=== PATIENT | female | born 1930 | race Caucasian/White ===

== ENCOUNTER 2018-03-04 13:48 | Inpatient (IN) | payer MEDICARE ==
[~2018-03-04] VITALS: Ht 152.4 cm; Wt 81.8 kg
[2018-03-04] VITALS (19 sets, daily range): BP systolic 120–258; BP diastolic 45–134
[2018-03-04 14:53] LABS: HEMATOCRIT 42.9 % (37.0-47.0); HEMOGLOBIN 13.6 gm/dL (12.0-15.0); MCH 25.2 pg (26.0-34.0); MCHC 31.7 g/dL (28.0-37.0); MCV 79.6 fL (80.0-100.0); MPV 8.8 fl. (7.2-11.1); NUCLEATED RBCS 0 /100WBC; PLATELET COUNT* 257 thou/uL (150-400); RBC 5.39 mil/uL (4.20-5.00); RDW-CV 16.6 % (10.5-14.5); WBC 8.4 thou/uL (4.0-11.0)
[2018-03-04 15:07] LABS: APTT 25.9 Seconds (25.0-31.3); INR 0.9; PROTIME 9.7 Seconds (9.20-11.50)
[2018-03-04 15:09] LABS: ANION GAP 7 mmol/L (7-16); BUN 11 mg/dL (7-18); CALCIUM 8.9 mg/dL (8.5-10.1); CHLORIDE 108 mmol/L (98-107); CO2 27 mmol/L (21-32); CREATININE 0.9 mg/dL (0.6-1.3); GLUCOSE 105 mg/dL (70-99); SODIUM 142 mmol/L (136-145)
[2018-03-04 15:14] LABS: ALBUMIN 3.2 g/dL (3.4-5.0); ALKALINE PHOSPHATASE 81 U/L (46-116); SGOT 13 U/L (15-37); SGPT 12 U/L (30-65); TOTAL BILIRUBIN 0.2 mg/dL (<0.1-1.0); TOTAL PROTEIN 6.9 g/dL (6.4-8.2); TROPONIN-I LEVEL <0.06 ng/mL (<0.06)
[2018-03-04 15:17] LABS: ABSOLUTE EOSINOPHILS 0.1 thou/uL (0.0-0.7); ABSOLUTE LYMPHOCYTES 1.3 thou/uL (0.8-5.3); ABSOLUTE MONOCYTES 0.2 thou/uL (0.0-1.2); ABSOLUTE NEUTROPHILS 6.9 thou/uL (1.6-8.1); ATYPICAL LYMPHS 1 %; PLATELET ESTIMATE ADEQUATE
--- NOTE | 2018-03-04 16:27 | EKG ---
[place] [address] ELECTROCARDIOGRAM REPORT Name: AUGUSTO SALOMON Room: [facility]#: [id number] Admission: 03/04/18 Attend Phys: Discharge: Date of : 32 Report #: [id number] THIS REPORT FOR: //name// [facility] ED Test Date: 2018-03-04 Test Time: 13:57:07 Pat Name: AUGUSTO SALOMON Department: Room: Gender: F Atmospheric Sciences Professor: Vivian MACIAS : 1930 Requested By: Cassi Gandhi Order Number: [id number] MD: Royce Licona Measurements Intervals [place] Rate: 107 P: 73 UT: 173 QRS: 18 QRSD: 88 T: 59 QT: 326 QTc: 435 Interpretive Statements Sinus tachycardia Anterior infarct, old No previous ECG available for comparison Electronically Signed On 03-04-2018 16:27:26 ELECTROENCEPHALOGRAM TECHNOLOGIST by Royce Licona [email or web address] <ELECTRONICALLY SIGNED> By: Royce Licona MD, [facility] 03/04/18 1627 1357 1357 Royce Licona MD, FACC /EPI
[2018-03-04 16:35] LABS: URINE BILIRUBIN NEGATIVE (Negative); URINE BLOOD NEGATIVE (Negative); URINE CLARITY CLEAR; URINE COLOR YELLOW; URINE GLUCOSE-RANDOM NEGATIVE (Negative); URINE KETONES NEGATIVE (Negative); URINE LEUKOCYTES-REFLEX 2+ (Negative); URINE NITRITE-REFLEX NEGATIVE (Negative); URINE PROTEIN NEGATIVE (Negative); URINE UROBILINOGEN 0.2 E.U./dl (0.2-1.0)
[2018-03-04 16:40] LABS: SQUAMOUS 0-3 Few /LPF (0-3); URINE RBC None Seen /HPF (0-2); URINE WBC-REFLEX 6-15 Few /HPF (0-5)
[2018-03-05] VITALS (43 sets, daily range): BP systolic 94–218; BP diastolic 44–141
[2018-03-05 09:41] LABS: ALBUMIN 2.8 g/dL (3.4-5.0); CALCIUM 8.4 mg/dL (8.5-10.1); CREATININE 0.9 mg/dL (0.6-1.3); POTASSIUM 3.7 mmol/L (3.5-5.1); TOTAL BILIRUBIN 0.2 mg/dL (<0.1-1.0); TOTAL PROTEIN 6.3 g/dL (6.4-8.2)
--- NOTE | 2018-03-05 10:11 | EKG ---
[place] [address] ELECTROCARDIOGRAM REPORT Name: AUGUSTO SALOMON Room: [address] ADM IN M.R.#: [id number] Admission: 03/04/18 Attend Phys: Sd Quarles Discharge: Date of : 31 Report #: [id number] THIS REPORT FOR: //name// [facility] ED Test Date: 2018-03-04 Test Time: 17:44:17 Pat Name: AUGUSTO SALOMON Department: Room: [facility] Gender: F Cushion Sewer: Leandro ROBLES : 1930 Requested By: Cassi Gandhi Order Number: [id number] MD: Bhaskar Mcfadden Measurements Intervals [place] Rate: 113 P: 110 CO: 150 QRS: 4 QRSD: 86 T: 109 QT: 310 QTc: 425 Interpretive Statements Sinus tachycardia Multiple premature complexes, vent & supraven Anterior infarct, old Compared to ECG 03/04/2018 13:57:07 pac's and pvc now noted Electronically Signed On 03-05-2018 10:11:35 PERSONAL SECRETARY by Bhaskar Mcfadden [email or web address] <ELECTRONICALLY SIGNED> By: Bhaskar Mcfadden MD, FACC 03/05/18 1011 1744 1744 Bhaskar Mcfadden MD, [facility] /EPI
--- NOTE | 2018-03-05 13:19 | 2DMMODE ---
[place] [address] 2 D/M-MODE ECHOCARDIOGRAM Name: AUGUSTO SALOMON Room: [address] IN [facility]#: [id number] Admission: 03/04/18 Attend Phys: Ross Bailey Discharge: Date of : 31 Date of Service: 03/05/18 1319 Report #: [id number] THIS REPORT FOR: //name// APPROVED REPORT Study performed: 03/05/2018 10:36:11 EXAM: Comprehensive 2D, Doppler, and color-flow Echocardiogram Patient Location: In-Patient Room #: [facility] Status: routine BSA: 1.80 HR: 77 bpm BP: 160/48 mmHg Rhythm: NSR Other Information Study Quality: Fair Indications CVA/TIA Echo Enhancing Agent Indication: Rule out Shunt Agent(s) / Amount(s) Used: Agitated Saline 10 cc 2D Dimensions IVSd: 12.93 (7-11mm) LVOT Diam: 19.92 (18-24mm) LVDd: 38.39 mm PWd: 12.44 (7-11mm) Ascending Ao: 27.83 (22-36mm) LVDs: 21.79 (25-40mm) Aortic Root: 28.49 mm Volumes Left Atrial Volume (Systole) LA ESV Index: 30.80 mL/m2 Aortic Valve AoV Peak Garrison.: 2.04 m/s AO Peak Gr.: 16.71 mmHg LVOT Max P.54 mmHg AO Mean Gr.: 8.47 mmHg LVOT Mean P.86 mmHg LVOT Max V: 1.07 m/s AO V2 VTI: 42.18 cm LVOT Mean V: 0.62 m/s PRAVEEN (VTI): 1.71 cm2 LVOT V1 VTI: 23.10 [place] [address] 2 D/M-MODE ECHOCARDIOGRAM Name: AUGUSTO SALOMON Room: [address] IN ..#: [id number] Admission: 03/04/18 Attend Phys: Ross Bailey Discharge: Date of : 31 Date of Service: 03/05/18 1319 Report #: [id number] Mitral Valve E/A Ratio: 0.77 MV Decel. Time: 277.64 ms MV E Max Garrison.: 0.84 m/s MV PHT: 80.52 ms MVA (PHT): 2.73 cm2 TDI E/Lateral E': 8.40 E/Medial E': 12.00 Medial E' Garrison.: 0.07 m/s Lateral E' Garrison.: 0.10 m/s Pulmonary Valve PV Peak Garrison.: 1.19 m/s PV Peak Gr.: 5.62 mmHg Left Ventricle The left ventricle is normal size. There is normal LV segmental wall motion. Mild concentric left ventricular hypertrophy. Left ventricular systolic function is normal. The left ventricular ejection fraction is within the normal range. LVEF is 65-70%. Grade I - abnormal relaxation pattern. Right Ventricle The right ventricle is normal size. The right ventricular systolic function is normal. Atria Left atrium is mildly dilated. Interatrial septum is intact without evidence of ASD or PFO. The right atrium size is normal. Aortic Valve Mild aortic valve sclerosis. No aortic regurgitation is present. Mild aortic stenosis. Mitral Valve The mitral valve is normal in structure. There is no mitral valve regurgitation noted. No evidence of mitral valve stenosis. Tricuspid Valve The tricuspid valve is normal in structure. Trace tricuspid regurgitation. Pulmonic Valve Pulmonic valve is not well visualized. There is no pulmonic [place] [address] 2 D/M-MODE ECHOCARDIOGRAM Name: AUGUSTO SALOMON Room: [address]#: [id number] Admission: 03/04/18 Attend Phys: Ross Bailey Discharge: Date of : 31 Date of Service: 03/05/18 1319 Report #: [id number] Great Vessels The aortic root is normal in size. IVC is normal in size and collapses >50% with inspiration. Pericardium There is no pericardial effusion. <Conclusion> Mild concentric left ventricular hypertrophy. LVEF is 65-70%. Left atrium is mildly dilated. Mild aortic stenosis. Interatrial septum is intact without evidence of ASD or PFO. <ELECTRONICALLY SIGNED> By: Bhaskar Mcfadden MD, FACC 03/05/18 1319 18 18 Bhaskar Mcfadden MD, FACC /INF
[2018-03-05 19:07] LABS: GLYCOHEMOGLOBIN (HGB A1C) 5.7 % (4.8-5.6)
[2018-03-06] VITALS (11 sets, daily range): BP systolic 154–196; BP diastolic 53–105
[2018-03-06 04:13] LABS: ABSOLUTE BASOPHILS 0.1 thou/uL (0.0-0.2); ABSOLUTE EOSINOPHILS 0.1 thou/uL (0.0-0.7); ABSOLUTE LYMPHOCYTES 1.3 thou/uL (0.8-5.3); ABSOLUTE MONOCYTES 0.7 thou/uL (0.0-1.2); ABSOLUTE NEUTROPHILS 6.2 thou/uL (1.6-8.1); BASOPHILS 0.6 %; EOSINOPHILS 1.5 %; HEMATOCRIT 35.8 % (37.0-47.0); HEMOGLOBIN 11.7 gm/dL (12.0-15.0); LYMPHOCYTES 15.5 %; MCH 25.7 pg (26.0-34.0); MCHC 32.6 g/dL (28.0-37.0); MCV 78.9 fL (80.0-100.0); MONOCYTES 8.4 %; MPV 9.1 fl. (7.2-11.1); NUCLEATED RBCS 0 /100WBC; PLATELET COUNT* 236 thou/uL (150-400); RBC 4.54 mil/uL (4.20-5.00); RDW-CV 16.3 % (10.5-14.5); WBC 8.4 thou/uL (4.0-11.0)
[2018-03-06 04:24] LABS: ANION GAP 11 mmol/L (7-16); BUN 8 mg/dL (7-18); CALCIUM 8.2 mg/dL (8.5-10.1); CHLORIDE 110 mmol/L (98-107); CHOLESTEROL 174 mg/dL (<200); CO2 22 mmol/L (21-32); CREATININE 0.8 mg/dL (0.6-1.3); GLUCOSE 96 mg/dL (70-99); HDL CHOLESTEROL 51 mg/dL (>40); LDL CHOLESTEROL 105 mg/dL (<100); POTASSIUM 3.3 mmol/L (3.5-5.1); SODIUM 143 mmol/L (136-145); TC:HDL 3.4 Ratio (Not establshd); TRIGLYCERIDE 93 mg/dL (<150); VLDL 19 mg/dL (<40)
[2018-03-06 04:25] LABS: SERUM ASSESSMENT CLEAR
--- NOTE | 2018-03-06 14:11 | CON ---
[address] [address] CONSULTATION Name: AUGUSTO SALOMON Room: [address] IN M.R.#: [id number] Admission: 03/04/18 Attend Phys: Sd Quarles Discharge: Date of : 31 Report #: [id number] THIS REPORT FOR: //name// CC: [facility] physician/PCP Ross Bailey HISTORY OF PRESENT ILLNESS: The patient is an 87-year-old female who presented to the Emergency Room yesterday with stroke-like symptoms. When the patient initially presented to the Emergency Room, her blood pressure was quite high. The initial reading was 258/134. This was controlled with medication. Her symptoms of right-sided weakness improved, but then recurred after she had returned to normal. She had a CT perfusion study of the head, this was unremarkable and at that time, she was given TPA. This morning, the patient has moderate weakness in the right upper extremity and is unable to lift the right leg from the bed. PAST MEDICAL HISTORY: Negative. PAST SURGICAL HISTORY: Negative. MEDICATIONS: None. ALLERGIES: None. PHYSICAL EXAMINATION: VITAL SIGNS: Temperature 36.8, pulse rate 95, respiratory rate 13, blood pressure 181/84, bedside pulse oximetry 95% on room air. LABORATORY DATA: White blood cell count 8.4, hemoglobin 13.6, hematocrit 42.9, platelet count 257,000. INR 0.9. Urinalysis: 2+ leukocyte esterase, few white blood cells, moderate bacteria. Chemistry: Sodium 140, potassium 3.7, chloride 108, carbon dioxide 23, BUN 11, creatinine 0.9, GFR 59, glucose 111, calcium 8.4, total bilirubin 0.2, AST 14, ALT 11, alkaline phosphatase 73, total protein 6.3, albumin 2.8. NEUROLOGIC: Cranial nerves 2-12 are grossly intact. In the extremities, the patient has moderate right upper extremity weakness, although she is able to open and close her hand. In the right lower extremity, the patient has no movement. She is unable to wiggle her toes. Reflexes demonstrate a slight right reflex preponderance. The right plantar response is extensor, the left is flexor. Coordination demonstrates no evidence of dysmetria. IMPRESSION AND PLAN: This patient has had a left hemispheric stroke. She is going for MRI this morning. This includes an MRA of the [place] of [place] as well. The patient will need an echocardiogram and a carotid ultrasound. The patient will also need a lipid profile. This has been ordered for tomorrow morning. She will need therapy in addition [place] [address] CONSULTATION Name: AUGUSTO SALOMON Room: [address] IN ..#: [id number] Admission: 03/04/18 Attend Phys: Sd Quarles Discharge: Date of : 31 Report #: [id number] When the patient was in the Emergency Room, she also had difficulty with arrhythmia and Cardiology has been consulted. Her echocardiogram of yesterday demonstrated sinus tachycardia and multiple premature complexes, ventricular and supraventricular in nature. I thank you for your kind referral of the patient and will continue to follow her with you. <ELECTRONICALLY SIGNED> By: Judith Elliott DO 03/06/18 1411 1054 [id number] Elliott DO /nt
--- NOTE | 2018-03-06 14:46 | CON ---
[address] [address] CONSULTATION Name: AUGUSTO SALOMON Room: [address] IN M.R.#: [id number] Admission: 03/04/18 Attend Phys: Sd Quarles Discharge: Date of : 31 Report #: [id number] THIS REPORT FOR: //name// CC: [facility] physician/PCP Ross Bailey DATE OF SERVICE: 03/05/2018 CARDIOLOGY CONSULTATION HISTORY OF PRESENT ILLNESS: The patient is an 87-year-old single white female who I was asked to see in the hospital today because of high blood pressure. The patient has not seen a doctor for years. She has been very healthy, has been on no medications. She does not exercise on a regular basis. She was doing well until 2 days ago. She noticed some clumsiness of her right arm and leg. Her family brought her to the hospital. She is felt to have a stroke. Her blood pressure is elevated. I was asked to see her for cardiac evaluation. She is not very active and denies any chest pain, shortness of breath, palpitation, syncope, edema. When she presented 2 days ago, she had difficulty moving her right arm and leg, which felt heavy and clumsy. She denied any swelling or trauma to her arm or leg. She denied any rash. She denied any slurred speech, blurred vision or drooping of her face. PAST MEDICAL HISTORY: She has had no major surgical procedures. She has no history of hypertension, diabetes, hyperlipidemia. She is hard of hearing. MEDICATIONS: She is on no medications. ALLERGIES: She has no known drug allergies. FAMILY HISTORY: Her mother had an irregular heartbeat. SOCIAL HISTORY: She is , lives with her daughter in [place]. She smokes a half pack of cigarettes a day. REVIEW OF SYSTEMS: She has had no previous history of asthma, peptic ulcer disease, liver disease, kidney disease, cancer, psychiatric illness, chronic skin condition. PHYSICAL EXAMINATION: GENERAL: Revealed an elderly female lying in bed. She appeared in no distress. VITAL SIGNS: She had a blood pressure 160/60, pulse is 80, she is afebrile. HEENT: She was anicteric, conjunctiva pink. Mucous members moist. NECK: Veins do not appear distended. Neck was Supple. Bilateral carotid bruits were heard. CHEST: [place] [address] CONSULTATION Name: AUGUSTO SALOMON Room: [address]#: [id number] Admission: 03/04/18 Attend Phys: Sd Quarles Discharge: Date of : 31 Report #: [id number] CARDIOVASCULAR: Regular rate and rhythm. No significant murmur. ABDOMEN: Soft. EXTREMITIES: Had no edema. Dorsalis pedis pulse 1+ in the right, cannot palpate on the left. SKIN: Cool and dry. NEUROLOGIC: She had right hemiplegia. PSYCHIATRIC: Mood is appropriate. LABORATORY DATA: Her ECG on admission showed a sinus rhythm, occasional PVC, occasional PAC, poor R-wave progression. Her workup so far, she had multiple x-rays including MRI of the head that showed recent infarction involving the left parietal white matter. No hemorrhage. She had a chest x-ray that showed no acute abnormality. Her lab work, sodium 140, creatinine 0.9, albumin 2.8. Troponin 0.06. White blood cell count 8.4, hemoglobin 13.6. Urinalysis negative protein, 2+ leukocytes, few squamous cells, moderate bacteria. IMPRESSION AND RECOMMENDATIONS: 1. Left parietal stroke, possibly related to hypertension. The patient has been by Neurology. 2. Hypertension. I would recommend starting treatment. I will consider using an ARB. 3. Hard of hearing. 4. Possible urinary tract infection. <ELECTRONICALLY SIGNED> By: Bhaskar Mcfadden MD, FACC 03/06/18 1446 1131 [id number] Mcfadden MD, FACC /nt
[2018-03-07] VITALS (7 sets, daily range): BP systolic 149–205; BP diastolic 62–82
[2018-03-08] VITALS: BP 185/67
[2018-03-08 04:00] VITALS: BP 176/68
[2018-03-08 08:00] VITALS: BP 176/76
[2018-03-08 12:00] VITALS: BP 176/77
[2018-03-08 16:00] VITALS: BP 168/66
[2018-03-08 19:00] VITALS: BP 184/63
[2018-03-09] VITALS: BP 175/65
[2018-03-09 04:00] VITALS: BP 184/55
[2018-03-09 12:00] VITALS: BP 192/80
[2018-03-09 16:00] VITALS: BP 194/76
[2018-03-10] VITALS: BP 141/57
[2018-03-10 04:00] VITALS: BP 200/72
[2018-03-10 08:07] VITALS: BP 194/70
[2018-03-10] MEDS ORDERED: CEFUROXIME500 MG PO (10:28)
[2018-03-10] MEDS ORDERED: CARVEDILOL3.125 MG PO (10:29)
[2018-03-10] MEDS ORDERED: COZAAR 25 MG TA25 M1 PO (10:30)
[2018-03-10] MEDS ORDERED: ASPIR 8181 MG PO (10:30)
[2018-03-10] MEDS ORDERED: NICOTINE TRANSD21 M1 (10:31)
[2018-03-10] MEDS ORDERED: ATORVASTATIN CA40 MG PO (10:32)
[2018-03-10 12:00] VITALS: BP 179/57
== END 2018-03-10 16:14 | DRG 62 ==
LOC: M.ERS 13:48 → M.TBA-ER 18:01 → M.ICU 18:01 → M.2W 03-06 19:38
PROVIDERS: Internal Medicine; Personal Emergency Response Attendant; ADMIT Internal Medicine
DX: I63.233 Cerebral infarction due to unspecified occlusion or stenosis of bilateral carotid arteries (principal); G81.91 Hemiplegia, unspecified affecting right dominant side; E44.1 Mild protein-calorie malnutrition; N39.0 Urinary tract infection, site not specified; I49.9 Cardiac arrhythmia, unspecified; I10 Essential (primary) hypertension; E11.9 Type 2 diabetes mellitus without complications; B96.20 Unspecified Escherichia coli [E. coli] as the cause of diseases classified elsewhere; E78.5 Hyperlipidemia, unspecified; H91.90 Unspecified hearing loss, unspecified ear; F17.210 Nicotine dependence, cigarettes, uncomplicated; M19.90 Unspecified osteoarthritis, unspecified site; Z91.14 Patient's other noncompliance with medication regimen; Z71.6 Tobacco abuse counseling; Z68.35 Body mass index [BMI] 35.0-35.9, adult; Z79.899 Other long term (current) drug therapy

== ENCOUNTER 2018-03-10 14:25 | Inpatient (IN) | payer MEDICARE ==
[~2018-03-10] VITALS: Ht 170.2 cm; Wt 80.7 kg
--- NOTE | ~2018-03-10 | PLAN ---
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 She also has owtj-bl-ewqyewmp impairment of comprehension, expression, social interaction, and problem solving. Estimated length of stay is 18-21 days with discharge disposition to the home setting. Previous level of function was modified independent to independent with activities of daily living. Current level of function is moderate assistance of 1-2 to dependent depending on therapy, activity and time of day. MEDICAL PROGNOSIS: Good. REHABILITATION PROGNOSIS: Good. DISCHARGE DISPOSITION: To home setting where she lives in a house with multiple supportive family members in a house that is accessible. Physical therapy will see the patient 60-90 minutes per day, 5 days per week, working on upper and lower body strength, balance, coordination, navigation, bathing. Occupational therapy will work with the patient 60-90 minutes per day, 5 days per week, working on upper and lower body strength, balance, coordination, navigation, bathing, dressing, and toileting. Speech language pathology will work with the patient 30-90 minutes per day, 5 days per week, working on speech, memory, cognition, expression, social interaction, and dysarthria. This is an overall plan of care, may change from time to time. We will team weekly and make changes to plan of care as needed. By: 1521 Matt Peña DO /nt
--- NOTE | ~2018-03-10 | H ---
[address] [address] HISTORY AND PHYSICAL Name: AUGUSTO SALOMON Room: [address] IN .R.#: [id number] Admission: 03/10/18 Attend Phys: Louise Peña DO Discharge: Date of : 31 Report #: [id number] THIS REPORT FOR: //name// CC: [facility] physician/PCP Louise Peña DATE OF SERVICE: 03/10/2018 IGC is 1.2. HISTORY OF PRESENT ILLNESS: This is a right-hand dominant 87-year-old female status post left CVA with residual right upper and lower extremity hemiparesis with some mekg-yi-drujafaa impairment of comprehension, expression, social interaction, and problem solving. She does have needs in physical and occupational therapy. She did have a right-sided weakness beginning on 03/04/2018. CTA perfusion came back, she was admitted to ICU. MRI did show a left parietal lobe CVA with urinary tract infection with E. coli, she has been treated for that. She does have ongoing dysarthria, debilitation and alterations in activities of daily living, as well as multiple medical comorbidities. Previous level of function was modified independent due to hard of hearing. Current level of function is moderate assistance to dependent depending on activity and time of day. She is ambulating with a front-wheeled walker. She does have some zqux-ml-ofjczfqv impairment of her comprehension, expression, social interaction, and memory as previously stated. Estimated length of stay is 18-21 days with discharge disposition to the home setting, where she lives in a home with supportive family in a 1 story house, one step to enter. Multiple supportive family members. PAST MEDICAL HISTORY: Hypertension, OA, hard of hearing, anemia with hemoglobin of 11.7 and urinary tract infection with E. coli, debility, bradycardia, right ICA stenosis, tobacco use, right shoulder rotator cuff tear. ALLERGIES: No known drug allergies. SOCIAL HISTORY: She does have current half pack per day smoking habit. No alcohol or illicit drug use. FAMILY HISTORY: Heart disease. REVIEW OF SYSTEMS: A 14-point review of systems is done and is negative except as mentioned in HPI, specifically no fever, chest pain, shortness of breath, abdominal pain or distention, change in bowel or change in bladder. PHYSICAL EXAMINATION: GENERAL: Alert, oriented, in no apparent distress. VITAL SIGNS: [place] [address] HISTORY AND PHYSICAL Name: AUGUSTO SALOMON Room: [address]#: [id number] Admission: 03/10/18 Attend Phys: Louise Peña DO Discharge: Date of : 31 Report #: [id number] HEENT: Head atraumatic, normocephalic. Pupils equal, round, reactive. ABDOMEN: Soft, nontender, nondistended. NEUROLOGIC: Cranial nerves 2-12 are grossly intact with no focal neuro deficit. She does have obvious right upper and lower extremity hemiparesis. She has some expressive aphasia. She has some dysarthria. She does have some mild impairment of her problem solving and memory as noticed when she is transferring from the chair to the wheelchair. ASSESSMENT: 1. 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 2. Multiple medical comorbidities. 3. Urinary tract infection with Escherichia coli. 4. History of bradycardia, hard of hearing, osteoarthritis and hypertension. PLAN: 1. Admission to inpatient rehabilitation to facilitate safe discharge home. 2. PT, OT, speech, language, case management, nursing and HIMS to make evaluations and recommendations. 3. Plan of care is pending. 4. We will team weekly and make changes to plan of care as needed. By: 1519 [id number] Peña DO /shayy
[~2018-03-10 14:25] MED LIST: ASPIR 8181 MG PO; ATORVASTATIN CA40 MG PO; CARVEDILOL3.125 MG PO; CEFUROXIME500 MG PO; COZAAR 25 MG TA25 M1 PO; NICOTINE TRANSD21 M1
[2018-03-10 17:00] VITALS: BP 221/85
[2018-03-10 17:30] VITALS: BP 213/76
--- NOTE | 2018-03-10 18:36 | NUR ---
ASSUMMED CARE OF PT ON ADMISSION TO UNITAT 1615, PT ALERT AND ORIENTED, DENIES PAIN, DENIES NAUSEA, TRANSFERS WITH MOD ASSIST OF 1 GB WALKER FROM COMMODE TO BED, NEEDS LIFTING ASSIST, BP 221/85 AFTER ADMISSSION, RECHECKED 213/76, CO REG GIVEN AND BP DECREASED TO 181/83, PHYSICIAN WANTS BP ABOVE 180 PER ORDER. PT AND FAMILY ORIENTED TO ROOM AND REHAB ROUTINE, ASSESSMENT COMPLETE, WILL ONTINUE TO MONITOR HOURLY ROUNDING COMPLETED.
[2018-03-10 20:00] VITALS: BP 174/53
--- NOTE | 2018-03-11 00:27 | NUR ---
ASSUMED CARE AT 1930. PATIENT RESTING IN BED. DAUGHTER AT BEDSIDE. TURNS SIDE TO SIDE. UP TO BSC TO VOID, UP WITH GB, STAND PIVOT. NEEDS HELP WITH BOTH LEGS GETTING INTO BED. TAKES PILLS ONE AT A TIME WITH WATER. BP 170/53. NO C/O PAIN. HOURLY ROUNDS CONTINUE. BED ALARM ON. CALL LITE IN REACH. REHAB ROUTINE REINFORCED WITH PATIENT. INSTRUCTED TO CALL FOR ASSIST.
[2018-03-11 04:32] LABS: HEMATOCRIT 35.9 % (37.0-47.0); HEMOGLOBIN 11.7 gm/dL (12.0-15.0); MCH 26.1 pg (26.0-34.0); MCHC 32.6 g/dL (28.0-37.0); MCV 79.8 fL (80.0-100.0); RBC 4.49 mil/uL (4.20-5.00); RDW-CV 16.4 % (10.5-14.5); WBC 7.3 thou/uL (4.0-11.0)
[2018-03-11 04:35] LABS: CALCIUM 8.6 mg/dL (8.5-10.1); CREATININE 0.8 mg/dL (0.6-1.3); POTASSIUM 3.9 mmol/L (3.5-5.1)
--- NOTE | 2018-03-11 05:32 | NUR ---
SLEPT AFTER AROUND 2300. DAUGHTER SPENT THE NIGHT. TURNS SELF. NO C/O PAIN. WAS UP TO VOID ONCE PER BSC WITH GAIT BELT, STAND PIVOT. HOURLY ROUNDS CONTINUE. BED ALARM ON. CALL LITE IN REACH.
[2018-03-11 08:28] VITALS: BP 223/77
[2018-03-11 08:35] VITALS: BP 166/67
--- NOTE | 2018-03-11 13:22 | NUR ---
Nutrition: Pt admitted to Rehab with CVA. H/o HTN, carotid stenosis. Wt: 177#. Eating 75% of meals. Albumin 2.8, prealb 16.1. RD restricted diet to Heart Healthy from Regular. Depleted protein stores noted. Mild nutrition risk. Will follow weekly for po intake, labs, wt.
--- NOTE | 2018-03-11 15:48 | NUR ---
SW met with pt and pt dtr bedside to complete initial assessment, introduce self, and SW role. Pt alert, oriented. Pt expressed that she was tired from the first day of therapies. Pt lives at home with her dtr. Pt dtr works during the day. Pt has a son who lives nearby who is retired and could provide assistance/support if needed. Pt does not have any DME or hx with HH or SNF. Pt was previously independent with mobility and ADLs. SW discussed team conference tomorrow; pt and pt dtr did not have any questions or concerns at this time. SW to continue to follow to assist with safe dc planning.
[2018-03-11 17:00] VITALS: BP 233/93
--- NOTE | 2018-03-11 18:12 | NUR ---
ASSUMMED CARE OF PT AT 0730, PT ALERT AND ORIENTED, TRANSFERS WITH MOD ASSIST GB WALKER, NEEDS LIFTING ASSIST, VOIDS PER COMMODE, BM X1 THIS SHIFT, TAKING FOOD AND FLUIDS WELL, DENIES PAIN, BP ELEVATED 223/77, BP MEDS GIVEN DOWN TO 166/67 DISCUSSED WITH PHYSICIAN, NEW ORDERS OBTAINED, BP 233/93 HYDRALAZINE GIVEN PER ORDER,BP DECREASED TO 181/65, PARTICIPATED IN ALL THERAPIES, LUNCH AND DINNER IN DININGROOM, HOURLY ROUNDING COMPLETED, WILL CONTINUE TO MONITOR.
[2018-03-11 18:15] VITALS: BP 181/65; BP 192/64
[2018-03-11 18:47] VITALS: BP 181/65
[2018-03-11 20:00] VITALS: BP 200/69
--- NOTE | 2018-03-11 21:25 | NUR ---
SITTING UP IN CHAIR WATCHING TV. DAUGHTER IN ROOM WITH PATIENT AND WILL BE STAYING THE NIGHT. DENIES DISCOMFORT. TOOK MEDICATIONS WHOLE ONE AT A TIME WITH WATER.
--- NOTE | 2018-03-12 05:21 | NUR ---
RESTED QUIETLY. NO COMPLAINTS VOICED. HOURLY ROUNDING IN PROGRESS.
[2018-03-12 08:19] VITALS: BP 194/68
[2018-03-12 10:32] VITALS: BP 165/57
--- NOTE | 2018-03-12 16:29 | NUR ---
SW met with pt son to review team conference summary as pt was busy in therapies all day each time SW checked to meet with pt. Plan for pt to remain on rehab unit with team to reassess pt length of stay during team conference next Saturday. Pt son in agreement with plan. Pt son to discuss with pt dtr as well. SW to continue to follow to assist with safe dc planning.
--- NOTE | 2018-03-12 17:49 | NUR ---
ASSUMED CARE AT 0730 PATIENT ALERT/ORIENTED, NO COMPLAINTS OF PAIN THIS SHIFT, UP WITH MAX ASSIST OF ONE WITH WALKER/GAIT BELT, TO DINING ROOM FOR MEALS, HOURLY ROUNDING COMPLETED, BED/CHAIR ALARMS IN PLACE, CALL LIGHT IN REACH, PARTICIPATED IN ALL THERAPIES TODAY
[2018-03-12 20:00] VITALS: BP 206/69
[2018-03-12 21:05] VITALS: BP 183/62
[2018-03-12 21:40] VITALS: BP 186/92
[2018-03-13] VITALS (7 sets, daily range): BP systolic 156–230; BP diastolic 64–82
--- NOTE | 2018-03-13 00:51 | NUR ---
ASSUMED CARE AT 1930. RESTING IN BED. MOD I IN ROOM. NO UNSAFE BEHAVIORS NOTED. TAKES PILLS WHOLE WITH WATER. DENIES NOSE BLEEDS. REQUESTED MELATONIN "LATER" THAN HS MED PASS, BUT WHEN NURSE ENTERED ROOM TO OFFER IT, PATIENT WAS SOUND ASLEEP WITH SNORING RESPIRATIONS. HOURLY ROUNDS CONTINUE. CALL LITE IN REACH.
--- NOTE | 2018-03-13 05:58 | NUR ---
SLEPT MOST OF THE SHIFT. VOIDED PER BSC AFTER HS ONCE. TURNS SELF. HOURLY ROUNDS CONTINUE. BED ALARM ON. CALL LITE IN REACH.
--- NOTE | 2018-03-13 17:48 | NUR ---
ASSUMED CARE AT 0730 PATIENT ALERT/ORIENTED, UP WITH ASSIST OF ONE AND WALKER/GAIT BELT, NO COMPLAINTS OF PAIN, B/P CONTINUES TO BE HIGH, MD ORDERED AN ADDITIONAL B/P MEDICATION. PARTICIPATED IN ALL THERAPIES TODAY, TO DINING ROOM FOR MEALS, BED/CHAIR ALARMS IN PLACE, CALL LIGHT IN REACH, HOURLY ROUNDING COMPLETED.
[2018-03-14 02:50] VITALS: BP 178/66
--- NOTE | 2018-03-14 05:23 | NUR ---
ASSUMED CARES AT 1920. ALERT AND ORIENTED. PLEASANT. CVA WITH RIGHT SIDE WEAKNESS. DENIED ANY PAIN, [place], SOA, DIZZINESS. SBP'S STILL ELEVATED >170-190'S. HYDRALAZINE GIVEN X 1 DURING THE NIGHT. TAKES PILLS WHOLE WITHOUT ISSUES. MOD ASSIST WITH GAIT BELT AND W/C. UP TO BATHROOM OR BSC. PT WANTS ASSIST WITH PERICARES. NEEDS LIFTING ASSIST FROM SIT TO STAND. CUEING FOR PROPER RIGHT FOOT PLACEMENT. SLEPT MOST OF THE NIGHT. CALL LIGHT IN REACH AND BED ALARM ON.
[2018-03-14 07:00] VITALS: BP 210/77
[2018-03-14 13:23] VITALS: BP 189/67
--- NOTE | 2018-03-14 13:27 | NUR ---
ASSUMED CARE AT 0730. ALERT ORIENTED PLEASANT COOPERATIVE. HX OF CVA RT. SIDE WEAKNESS. TRANSFERS WITH MIN ASSIST G BELT AND WALKER FROM BED TO STANDING POSITION AMBULATED A FEW STEPS TO RECLINER FOR BREAKFAST. FEEDS SELF AND TAKES MEDS WHOLE ONE AT A TIME WITH WATER WITHOUT DIFFICULTY. APPETITE GOOD. BP WAS 210/77 55 DENIES HEADACHE OR PAIN. HYDRALAZINE 10 MG. PO THIS A.M. RECHECK 189/67 P 57 AT 1315. PARTICIPATING IN THERAPIES THROUGHOUT THE DAY. USES CALL LIGHT APPROPRIATELY FOR ASSISTANCE. SON HERE BROUGHT HER LUNCH.
[2018-03-14 20:05] VITALS: BP 179/61
--- NOTE | 2018-03-15 05:24 | NUR ---
ASSUMED CARES AT 1920. ALERT AND ORIENTED. PLEASANT. CVA WITH RIGHT SIDE WEAKNESS. TAKES PILLS WHOLE WITHOUT ISSUES. DENIED ANY PAIN. MOD ASSIST WITH GAIT BELT AND W/C. NEEDS BOSTING FROM SIT TO STAND. USED BSC OVERNIGHT. PT WANTS ASSIST WITH PERICARE. SLEPT WELL. DAUGHTER STAYED OVERNIGHT. CALL LIGHT IN REACH AND BED ALARM ON.
[2018-03-15 07:53] VITALS: BP 113/74
--- NOTE | 2018-03-15 18:02 | NUR ---
ASSUMED CARE AT 0730 PATIENT ALERT/ORIENTED, NO COMPLAINTS OF PAIN THIS SHIFT, UP WITH ASSIST OF ONE AND WALKER/GAIT BELT. TO DINING ROOM FOR MEALS, HOURLY ROUNDING COMPLETED, BED/CHAIR ALARMS IN PLACE, CALL LIGHT IN REACH, PARTICIPATED IN ALL THERAPIES TODAY
[2018-03-15 20:32] VITALS: BP 175/75
--- NOTE | 2018-03-16 05:23 | NUR ---
ASSUMED PT CARE AT 1930. PT ALERT AND ORIENTED X4, POLITE AND COOPERATIVE WITH CARES. CVA WITH RIGHT SIDE WEAKNESS. TAKES PILLS WHOLE WITH WATER WITHOUT DIFFICULTY. DENIES PAIN. UP WITH MIN ASSIST OF ONE, GAIT BELT AND WALKER. UP TO BSC TO VOID OVERNIGHT. PT WANTS STAFF TO PERFORM PERICARE. DAUGHTER STAYED OVERNIGHT. CALL LIGHT AND FREQUENTLY USED ITEMS WITHIN REACH. USES CALL LIGHT APPROPRIATELY. HOURLY ROUNDING IN PROGRESS, WILL CONTINUE TO MONITOR.
[2018-03-16 08:42] VITALS: BP 147/64
--- NOTE | 2018-03-16 18:58 | NUR ---
ASSUMED CARE AT 0730 PATIENT ALERT/ORIENTED, UP WITH ASSIST OF ONE AND WALKER/GAIT BELT, NO COMPLAINTS OF PAIN THIS SHIFT, TO DINING ROOM FOR MEALS, VISITING WITH FAMILY/FRIENDS, HOURLY ROUNDING COMPLETED, BED/CHAIR ALARMS IN PLACE, CALL LIGHT IN REACH.
[2018-03-16 20:00] VITALS: BP 151/68
[2018-03-17 04:09] LABS: HEMATOCRIT 37.9 % (37.0-47.0); HEMOGLOBIN 12.2 gm/dL (12.0-15.0); MCH 25.6 pg (26.0-34.0); MCHC 32.1 g/dL (28.0-37.0); MCV 79.5 fL (80.0-100.0); MPV 10.1 fl. (7.2-11.1); RBC 4.76 mil/uL (4.20-5.00); RDW-CV 16.2 % (10.5-14.5); WBC 9.7 thou/uL (4.0-11.0)
[2018-03-17 04:22] LABS: CALCIUM 8.7 mg/dL (8.5-10.1); MAGNESIUM 1.9 mg/dL (1.8-2.4); POTASSIUM 3.7 mmol/L (3.5-5.1)
--- NOTE | 2018-03-17 05:18 | NUR ---
ASSUMED PT CARE AT 1930. PT SITTING UP IN RECLINER WATCHING TELEVISION AND VISITING WITH DAUGHTER. UP WITH ASSIST OF ONE, GAIT BELT AND WALKER TO BSC TWICE THIS SHIFT TO VOID. DENIES PAIN. PT SLEPT WELL OVERNIGHT. USES CALL LIGHT APPROPRIATELY. CALL LIGHT AND FREQUENTLY USED ITEMS WITHIN REACH. BED ALARM ON FOR SAFETY. HOURLY ROUNDING IN PROGRESS, WILL CONTINUE TO MONITOR.
[2018-03-17 08:00] VITALS: BP 151/59
--- NOTE | 2018-03-17 16:37 | NUR ---
ASSUMED CARE AT 0730. ALERT AND ORIENTED PLEASANT COOPERATIVE. HX OF CVA RT. SIDE WEAKNESS. TRANSFERS WITH 1 ASSIST G BELT WALKER TO RECLINER. FEEDS SELF APPETITE OK AT BREAKFAST. DENIES PAIN OR CONCERNS. USES CALL LIGHT APPROPRIATELY FOR ASSIST. PARTICIPATING IN THERAPIES THROUGHOUT THE DAY. FAMILY MEMBERS HERE MOST OF THE DAY. ORDER OBTAINED FOR RT. JAMES MASSEY FAXED AND SPOKE TO THEM PER PHONE.
[2018-03-17 20:00] VITALS: BP 125/52
--- NOTE | 2018-03-18 05:30 | NUR ---
ASSUMED PT CARE AT 1930. PT ALERT AND ORIENTED X4, POLITE AND COOPERATIVE WITH CARES. HX OF CVA, RT SIDE WEAKNESS. DENIES PAIN. TRANSFERS WITH ASSIST OF ONE, GAIT BELT AND WALKER TO [facility] TO VOID TWICE THIS SHIFT. PT SLEPT WELL OVERNIGHT. BED ALARM ON FOR SAFETY. CALL LIGHT AND FREQUENTLY USED ITEMS WITHIN REACH. USES CALL LIGHT APPROPRIATELY. HOURLY ROUNDING IN PROGRESS, WILL CONTINUE TO MONITOR.
[2018-03-18 08:07] VITALS: BP 167/66
--- NOTE | 2018-03-18 15:24 | NUR ---
ASSUMED CARE AT 0730. ALERT ORIENTED PLEASANT COOPERATIVE. HX OF CVA RT. SIDE WEAKNESS. TRANSFERS WITH 1 FROM RECLINER TO STANDING G BELT WALKER. VOIDS IN BR AND HAD A LARGE BM. ABLE TO DO HYGEINE AND CLOTHING ADJUSTMENTS. DENIES PAIN BUT DOES FEEL TIRED. PARTICIPATING IN THERAPIES THROUGHOUT THE DAY. USES CALL LIGHT APPROPRIATELY FOR ASSISTANCE. RESTING IN BED AFTER THERAPIES COMPLETED. FEEDS SELF TAKES MEDS WITHOUT DIFFICULTY. SON AND DAUGHTER HERE TODAY.
[2018-03-18 19:31] VITALS: BP 144/57
--- NOTE | 2018-03-19 05:36 | NUR ---
ASSUMED CARES AT 1920. ALERT AND ORIENTED. PLEASANT. DENIED ANY PAIN. HAS RIGHT LEG AFO. TAKES PILLS WHOLE. MIN ASSIST WITH GAIT BELT AND WALKER. UP TO BSC. DOES STILL NEED SOME ASSIST WITH PERICARES. SLEPT WELL MOST OF THE NIGHT. CALL LIGHT IN REACH AND BED ALARM ON.
[2018-03-19 07:30] VITALS: BP 153/65
--- NOTE | 2018-03-19 13:45 | NUR ---
SW met with pt son and pt granddtr while pt was in therapies and met with pt after her therapies as well to review team conference summary and plan to reteam next Saturday during team conference to reassess pt length of stay. Pt son was not in agreement with plan and wanted pt to dc and be home for [place]. Pt son said that there will be someone with pt all the time and that the family is open to family training. Pt son said that he did not know what the future holds and he did not want pt to "spend possibly last [place] in the hospital". Pt son attests that pt may continue to decrease in motivation and not progress in therapies if pt does not want to stay in hospital any longer. JACKIE spoke with Dr Peña who suggested a pass for ; SW to follow to present to family. SW discussed with pt the team's recommendation to continue therapies towards pt goals and needing more time on ARU. Pt did not respond much; SW to follow to discuss again with team and with pt family.
--- NOTE | 2018-03-19 20:05 | NUR ---
SITTING UP IN RECLINER WATCHING TV AND VISITING WITH DAUGHTER. DENIES DISCOMFORT. DECLINED OFFER OF A SNACK. TOOK MEDICATIONS WHOLE ONE AT A TIME WITH WATER.
[2018-03-19 20:24] VITALS: BP 151/55
--- NOTE | 2018-03-20 05:02 | NUR ---
RESTED QUIETLY. NO COMPLAINTS VOICED. HOURLY ROUNDING IN PROGRESS.
[2018-03-20 08:09] VITALS: BP 160/60
--- NOTE | 2018-03-20 17:18 | NUR ---
AM ASSESSMENT AND VITAL SIGNS COMPLETED DOCUMENTED. PT HAS BEEN PLEASANT AND COOPERATIVE. FALL PRECAUTIONS AND HOURLY ROUNDING CONTINUE.
--- NOTE | 2018-03-20 19:50 | NUR ---
SITTING UP IN RECLINER WITH LEGS ELEVATED. DAUGHTER IN ROOM VISITING. DENIES PAIN. DENIES NEEDS.
[2018-03-20 20:25] VITALS: BP 162/56
--- NOTE | 2018-03-21 05:40 | NUR ---
RESTED QUIETLY. NO COMPLAINTS VOICED. HOURLY ROUNDING IN PROGRESS.
[2018-03-21 08:25] VITALS: BP 153/51
[2018-03-21 19:00] VITALS: BP 112/61
--- NOTE | 2018-03-21 19:14 | NUR ---
ASSUMED CARE AT 0730 PATIENT ALERT/ORIENTED, NO COMPLAINTS OF PAIN THIS SHIFT, UP WITH ASSIST OF ONE AND WALKER/GAIT BELT. TO DINING ROOM FOR MEALS, BED/CHAIR ALARMS IN PLACE, CALL JULIA IN REACH, PARTICIPATED IN ALL THERAPIES TODAY. PATIENT/FAMILY WANTING HER TO BE HOME FOR [place], DR BONILLA IN HERE SPEAKING WITH PATIENT/FAMILY. FAMILY WILL DO FAMILY TRAINING SAT AND SUN AND DAUGHTER TO STAY ALL NIGHT SATURDAY NIGHT WILL D/C TO HOME ON SATURDAY
--- NOTE | 2018-03-22 05:45 | NUR ---
ASSUMED CARES AT 1920. ALERT AND ORIENTED. PLEASANT. DENIED ANY PAIN. TAKES PILLS WHOLE. MIN ASSIST WITH GAIT BELT AND WALKER. UP TO BSC. NEEDS ASSIST WITH PERICARES. SLEPT WELL. NO ISSUES OVERNIGHT. CALL LIGHT IN REACH AND BED ALARM ON.
[2018-03-22 07:00] VITALS: BP 147/58
--- NOTE | 2018-03-22 14:40 | NUR ---
TEXT RECEIVED EARLIER FROM DOMITILA/REH[facility] LIASON. STATED THAT, PER ,IF FAMILY COMES IN FOR TRAINING TODAY AND SPENDS THE NIGHT TOMORROW NIGHT, PT.CAN BE DISCHARGED ON SATURDAY. ILSA CABRALES AND CM SPOKE WITH PT. PT.SAID HER DAUGHTER HAD BEEN HERE FOR TRAINING TODAY AND HAD STEPPED OUT TO GET LUNCH. SHE WAS COMING BACK. SHE ALSO SAID HER DAUGHTER WOULD BE SPENDING THE NIGHT TOMORROW NIGHT. PT.ALERT AND ORIENTED. PT.WILL ALSO NEED A WALKER FOR HOME USE.
--- NOTE | 2018-03-22 17:10 | NUR ---
ASSUMED CARE AT 0730. ALERT ORIENTED PLEASANT COOPERATIVE. HX OF CVA RT. SIDE WEAKNESS. TRANSFERS WITH SBA G BELT WALKER WEARS RT. AFO IN SHOE. AMBULATED TO BR TO VOID AND HAD BM NEEDS ASSIST FOR HYGEINE AFTER BM ABLE TO DO CLOTHING ADJUSTMENTS. DAUGHTER SON AND OTHER FAMILY MEMBERS HERE VISITING TODAY AT INTERVALS. PT. DENIES PAIN OR CONCERNS. USES CALL LIGHT APPROPRIATELY FOR ASSIST. SITTING UP IN RECLINER WITH BLES ELEVATED. HOURLY ROUNDING COMPLETED.
[2018-03-22 20:00] VITALS: BP 119/53
--- NOTE | 2018-03-23 05:25 | NUR ---
ASSUMED CARES AT 1920. ALERT AND ORIENTED. PLEASANT. MIN ASSIST WITH GAIT BELT AND WALKER. UP TO BSC. NEEDS ASSIST WITH PERICARES. NO ISSUES OVERNIGHT. SLEPT WELL. CALL LIGHT IN REACH AND BED ALARM ON.
[2018-03-23 09:20] VITALS: BP 130/93
--- NOTE | 2018-03-23 16:41 | NUR ---
ASSUMED CARE AT 0730. ALERT ORIENTED, PLEASANT COOPERATIVE. HX OF CVA RT. SIDE WEAKNESS. TRANSFERS WITH SBA G BELT AND AMBULATES WITH WALKER TO BR TO VOID AND HAD A BM. DAUGHTER SON HERE AND AMBULATING PT. TO BR SAFELY ALSO WORKING WITH THERAPIES FOR FAMILY EDUCATION. DAUGHTER WILL BE STAYING THE NIGHT AND CARING FOR PT. DENIES PAIN OR CONCERNS. TO DR PER W/C FOR MEALS. APPETITE GOOD FEEDS SELF TAKES MEDS WITHOUT DIFFICULTY. HOURLY ROUNDING COMPLETED THROUGHOUT THE DAY. EDUCATIONAL MED SHEETS GIVEN TO FAMILY.
[2018-03-23 20:00] VITALS: BP 143/56
--- NOTE | 2018-03-24 05:30 | NUR ---
ASSUMED CARES AT 1920. ALERT AND ORIENTED. PLEASANT. CVA WITH RIGHT SIDE WEAKNESS. TAKES PILLS WHOLE. MIN ASSIST WITH GAIT BELT AND WALKER. UP TO BSC. NEEDS ASSIST WITH PERICARES. DAUGHTER STAYED OVERNIGHT AND ASSISTED PT WITH ALL CARES. PT SLEPT WELL. NO CONCERNS VOICED OVERNIGHT. CALL LIGHT IN REACH.
[2018-03-24 09:53] VITALS: BP 146/60
[2018-03-24] MEDS ORDERED: HYDROCHLOROTHIA25 M2 PO (12:06)
[2018-03-24 12:10] VITALS: BP 146/60
[2018-03-24 12:40] VITALS: BP 146/60
[2018-03-24 12:45] VITALS: BP 146/60
[2018-03-24 12:58] VITALS: BP 146/60
--- NOTE | 2018-03-24 13:30 | NUR ---
Pt to dc home with family today per team and pt and family agreement; pt family completed family training Saturday and Saturday and spent the night Saturday night to provide care and practice for dc home. SW provided PCP referral/resource list. services to follow through pt/family preference of [facility] [phone] fax [phone]. PT discussed with family wc options and SW provided referral and order for wc to [facility]; pt already has a rolling walker at home. SW also provided family info on [employer] so family has 2 options if they should need to rent a wc or any other DME. Possible for [facility] to accept wc order and provide wc to pt home. ph [phone] fax [phone]. Pt family to provide pt ride home.
--- NOTE | 2018-03-24 16:22 | NUR ---
ASSUMMED CARE OF PT AT 0730, PT ALERT AND ORIENTED, TRANSFERS WITH SBA GB WALKER, TAKING FOOD AND FLUIDS WELL, DENIES PAIN, WEARS AFO TO RIGHT LEG WHEN UP, PARTICIPATED IN ALL THERAPIES, TO DININGROOM FOR LUNCH, ORDER OBTAINED FOR DISCHARGE,ASSESSMENT COMPLETE, HOURLY ROUNDING COMPLETE, DISCUSSED BLOOD THINNER WITH HOSPITALIST AND PT TO REMAIN ON ASPIRIN AND NO OTHER MED REQUIRED, NEW MEDICATIONS CALLED INTO PHARMACY FOR PATIENT, FAMILY TO BIODIESEL PROCESS CONTROL TECHNICIAN, DICUSSED FOLLOW UP APPOINTMENTS, WHEN TO CALL PHYSICIAN, HOME HEALTH, MEDICATIONS WITH PT AND FAMILY, PT DISCHARGED TO MAIN ENTRANCE WITH FAMILY AND BELONGINGS.
== END 2018-03-24 14:00 | disposition home health service (06) | DRG 56 ==
LOC: M.REH 14:25
PROVIDERS: Internal Medicine; ADMIT Physical Medicine & Rehabilitation
DX: G81.91 Hemiplegia, unspecified affecting right dominant side (principal); I63.9 Cerebral infarction, unspecified; N39.0 Urinary tract infection, site not specified; R47.01 Aphasia; R47.1 Dysarthria and anarthria; H91.90 Unspecified hearing loss, unspecified ear; B96.20 Unspecified Escherichia coli [E. coli] as the cause of diseases classified elsewhere; I10 Essential (primary) hypertension; M19.90 Unspecified osteoarthritis, unspecified site; F17.210 Nicotine dependence, cigarettes, uncomplicated; Z82.49 Family history of ischemic heart disease and other diseases of the circulatory system; Z79.899 Other long term (current) drug therapy; Z79.82 Long term (current) use of aspirin; Z71.6 Tobacco abuse counseling

== ENCOUNTER 2019-06-02 20:57 | Emergency (ER) | payer MEDICARE ==
[~2019-06-02] VITALS: Ht 167.6 cm; Wt 93.0 kg
[~2019-06-02 20:57] MED LIST changes: +HYDROCHLOROTHIA25 M2 PO
[2019-06-02 21:46] LABS: CALCIUM 8.2 mg/dL (8.5-10.1); CREATININE 1.3 mg/dL (0.6-1.3); POTASSIUM 3.5 mmol/L (3.5-5.1)
[2019-06-02 21:57] LABS: ALBUMIN 3.1 g/dL (3.4-5.0); TOTAL BILIRUBIN 0.2 mg/dL (<0.1-1.0); TOTAL PROTEIN 6.7 g/dL (6.4-8.2)
[2019-06-02 22:43] LABS: URINE BILIRUBIN NEGATIVE (Negative); URINE BLOOD NEGATIVE (Negative); URINE CLARITY CLEAR; URINE COLOR YELLOW; URINE GLUCOSE-RANDOM NEGATIVE (Negative); URINE KETONES NEGATIVE (Negative); URINE LEUKOCYTES-REFLEX 2+ (Negative); URINE NITRITE-REFLEX NEGATIVE (Negative); URINE PROTEIN NEGATIVE (Negative); URINE SPECIFIC GRAVITY 1.015 (1.005-1.030); URINE UROBILINOGEN 0.2 E.U./dl (0.2-1.0)
[2019-06-02 22:52] LABS: SQUAMOUS >10 Many /LPF (0-3); URINE WBC-REFLEX >25 Many /HPF (0-5)
[2019-06-02 22:53] LABS: MUCUS None Seen strn/LPF (None Seen); URINE RBC 0-2 Rare /HPF (0-2); WBC CLUMPS Few (None Seen)
[2019-06-02 22:54] LABS: BACTERIA-REFLEX 1-9 Few /HPF (None Seen); CASTS None Seen /LPF (None Seen); CRYSTALS None Seen /LPF (None Seen)
[2019-06-02 22:59] LABS: ABSOLUTE EOSINOPHILS 0.2 thou/uL (0.0-0.7); ABSOLUTE LYMPHOCYTES 1.6 thou/uL (0.8-5.3); ABSOLUTE MONOCYTES 0.6 thou/uL (0.0-1.2); ABSOLUTE NEUTROPHILS 7.7 thou/uL (1.6-8.1); BASOPHILS 0.2 %; EOSINOPHILS 1.5 %; HEMATOCRIT 40.6 % (37.0-47.0); HEMOGLOBIN 13.5 gm/dL (12.0-15.0); MCH 27.2 pg (26.0-34.0); MCHC 33.2 g/dL (28.0-37.0); MCV 81.8 fL (80.0-100.0); MONOCYTES 5.7 %; MPV 9.7 fl. (7.2-11.1); NUCLEATED RBCS 0 /100WBC; PLATELET COUNT* 269 thou/uL (150-400); POLYS 76.6 %; RBC 4.96 mil/uL (4.20-5.00)
[2019-06-02] MEDS ORDERED: MACROBID 100 M100 M1 PO (23:42)
[2019-06-03 01:28] VITALS: BP 181/82
--- NOTE | 2019-06-03 10:34 | EKG ---
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1930 Requested By: Koki Espino Order Number: [id number] MD: Bhaskar Mcfadden Measurements Intervals [place] Rate: 70 P: 78 [place]: 170 QRS: 10 QRSD: 87 T: 160 QT: 383 QTc: 414 Interpretive Statements Sinus rhythm Atrial premature complex Anteroseptal infarct, age indeterminate Lateral leads are also involved Compared to ECG 03/04/2018 17:44:17 Atrial premature complex(es) now present Sinus tachycardia no longer present Myocardial infarct finding still present Electronically Signed On 06-03-2019 10:33:22 FLOORING SALESPERSON by Bhaskar Mcfadden [email or web address] <ELECTRONICALLY SIGNED> By: Bhaskar Mcfadden MD, FACC 06/03/19 1033 22 22 Bhaskar Mcfadden MD, FAC /EPI
== END 2019-06-03 01:30 | disposition home or self-care (01) ==
LOC: M.ERS 20:57
PROVIDERS: Emergency Medicine
DX: I10 Essential (primary) hypertension (principal); N39.0 Urinary tract infection, site not specified; Z86.73 Personal history of transient ischemic attack (TIA), and cerebral infarction without residual deficits

== ENCOUNTER 2019-06-07 21:49 | Emergency (ER) | payer MEDICARE ==
[~2019-06-07] VITALS: Ht 167.6 cm; Wt 9.1 kg
[~2019-06-07 21:49] MED LIST changes: +MACROBID 100 M100 M1 PO
[2019-06-07 22:49] LABS: ABSOLUTE EOSINOPHILS 0.1 thou/uL (0.0-0.7); ABSOLUTE LYMPHOCYTES 1.5 thou/uL (0.8-5.3); ABSOLUTE MONOCYTES 0.6 thou/uL (0.0-1.2); BASOPHILS 0.3 %; CREATININE 1.2 mg/dL (0.6-1.3); EOSINOPHILS 1.8 %; HEMATOCRIT 40.2 % (37.0-47.0); HEMOGLOBIN 13.6 gm/dL (12.0-15.0); LYMPHOCYTES 20.4 %; MCH 27.3 pg (26.0-34.0); MCHC 33.7 g/dL (28.0-37.0); MCV 80.9 fL (80.0-100.0); MONOCYTES 8.5 %; MPV 9.1 fl. (7.2-11.1); NUCLEATED RBCS 0 /100WBC; PLATELET COUNT* 254 thou/uL (150-400); POTASSIUM 3.9 mmol/L (3.5-5.1); RBC 4.97 mil/uL (4.20-5.00); RDW-CV 15.8 % (10.5-14.5); WBC 7.3 thou/uL (4.0-11.0)
[2019-06-07 23:26] LABS: URINE BILIRUBIN NEGATIVE (Negative); URINE BLOOD NEGATIVE (Negative); URINE CLARITY CLEAR; URINE COLOR YELLOW; URINE GLUCOSE-RANDOM NEGATIVE (Negative); URINE KETONES NEGATIVE (Negative); URINE LEUKOCYTES-REFLEX 2+ (Negative); URINE NITRITE-REFLEX NEGATIVE (Negative); URINE PROTEIN NEGATIVE (Negative); URINE UROBILINOGEN 0.2 E.U./dl (0.2-1.0)
[2019-06-07 23:34] LABS: BACTERIA-REFLEX >30 Many /HPF (None Seen); CASTS None Seen /LPF (None Seen); MUCUS 0-3 Light strn/LPF (None Seen); SQUAMOUS 0-3 Few /LPF (0-3); URINE RBC 3-10 Few /HPF (0-2); URINE WBC-REFLEX >25 Many /HPF (0-5); WBC CLUMPS Moderate (None Seen)
[2019-06-07 23:35] LABS: CRYSTALS None Seen /LPF (None Seen)
[2019-06-08] MEDS ORDERED: CIPROFLOXACIN500 M1 PO (00:56)
[2019-06-08 01:31] VITALS: BP 117/46
--- NOTE | 2019-06-08 16:28 | EKG ---
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: [place] : 1930 Requested By: Koki Espino Order Number: [id number] MD: Royce Licona Measurements Intervals [place] Rate: 59 P: 70 [place]: 180 QRS: 17 QRSD: 89 T: 68 QT: 455 QTc: 451 Interpretive Statements Sinus rhythm Anterior infarct, old Compared to ECG 06/02/2019 21:23:18 Atrial premature complex(es) no longer present Myocardial infarct finding still present Electronically Signed On 06-08-2019 16:27:44 CDT by Royce Licona [email or web address] <ELECTRONICALLY SIGNED> By: Royce Licona MD, FACC 06/08/19 1627 2159 2159 Royce Licona MD, FAC /EPI
== END 2019-06-08 01:33 | disposition home or self-care (01) ==
LOC: M.ERS 21:49
PROVIDERS: Emergency Medicine
DX: I10 Essential (primary) hypertension (principal); N39.0 Urinary tract infection, site not specified; Z86.73 Personal history of transient ischemic attack (TIA), and cerebral infarction without residual deficits

== ENCOUNTER 2019-08-25 12:29 | Emergency (ER) | payer MEDICARE ==
[~2019-08-25] VITALS: Ht 167.6 cm; Wt 92.5 kg
[~2019-08-25 12:29] MED LIST changes: +CIPROFLOXACIN500 M1 PO
[2019-08-25 13:19] LABS: ABSOLUTE BASOPHILS 0.1 thou/uL (0.0-0.2); ABSOLUTE EOSINOPHILS 0.2 thou/uL (0.0-0.7); ABSOLUTE LYMPHOCYTES 1.7 thou/uL (0.8-5.3); ABSOLUTE MONOCYTES 0.5 thou/uL (0.0-1.2); ABSOLUTE NEUTROPHILS 4.3 thou/uL (1.6-8.1); BASOPHILS 0.9 %; EOSINOPHILS 2.3 %; HEMATOCRIT 38.2 % (37.0-47.0); HEMOGLOBIN 12.9 gm/dL (12.0-15.0); LYMPHOCYTES 25.2 %; MCHC 33.7 g/dL (28.0-37.0); MCV 83.1 fL (80.0-100.0); MONOCYTES 7.8 %; NUCLEATED RBCS 0 /100WBC; PLATELET COUNT* 270 thou/uL (150-400); POLYS 63.8 %; RDW-CV 16.1 % (10.5-14.5); WBC 6.7 thou/uL (4.0-11.0)
[2019-08-25 13:23] LABS: APTT 24.4 Seconds (25.0-31.3)
[2019-08-25 13:40] LABS: CALCIUM 8.2 mg/dL (8.5-10.1); CREATININE 1.3 mg/dL (0.6-1.3); POTASSIUM 4.1 mmol/L (3.5-5.1)
[2019-08-25 13:51] LABS: ALBUMIN 3.2 g/dL (3.4-5.0); TOTAL BILIRUBIN 0.2 mg/dL (<0.1-1.0); TOTAL PROTEIN 7.1 g/dL (6.4-8.2)
[2019-08-25 13:59] LABS: URINE BILIRUBIN NEGATIVE (Negative); URINE BLOOD NEGATIVE (Negative); URINE CLARITY CLEAR; URINE COLOR YELLOW; URINE GLUCOSE-RANDOM NEGATIVE (Negative); URINE KETONES NEGATIVE (Negative); URINE LEUKOCYTES-REFLEX 1+ (Negative); URINE NITRITE-REFLEX NEGATIVE (Negative); URINE PROTEIN NEGATIVE (Negative); URINE UROBILINOGEN 0.2 E.U./dl (0.2-1.0)
[2019-08-25 14:06] LABS: SQUAMOUS 0-3 Few /LPF (0-3); URINE WBC-REFLEX 0-5 Rare /HPF (0-5)
[2019-08-25 14:07] LABS: URINE RBC None Seen /HPF (0-2)
[2019-08-25 14:08] LABS: BACTERIA-REFLEX 1-9 Few /HPF (None Seen); CASTS None Seen /LPF (None Seen); CRYSTALS None Seen /LPF (None Seen); MUCUS 0-3 Light strn/LPF (None Seen)
[2019-08-25] MEDS ORDERED: AMOXICILLIN 50500 M1 PO (15:38)
--- NOTE | 2019-08-25 16:30 | EKG ---
[place] [address] ELECTROCARDIOGRAM REPORT Name: AUGUSTO SALOMON Room: [facility]#: [id number] Admission: 08/25/19 Attend Phys: Discharge: Date of : 32 Date of Service: 08/25/19 1308 Report #: [id number] THIS REPORT FOR: //name// [facility] ED Test Date: 2019-08-25 Test Time: 13:08:54 Pat Name: AUGUSTO SALOMON Department: Room: Gender: F Pool Finisher: CCD : 1930 Requested By: Cassi Gandhi Order Number: [id number] MD: Zeke Pina Measurements Intervals [place] Rate: 51 P: 148 [place]: 186 QRS: -18 QRSD: 93 T: 152 QT: 411 QTc: 379 Interpretive Statements Sinus or ectopic atrial rhythm Probable anterior infarct, age indeterminate Lateral leads are also involved Compared to ECG 06/07/2019 21:59:21 Ectopic atrial rhythm now present Sinus rhythm no longer present Myocardial infarct finding still present Electronically Signed On 08-25-2019 16:28:20 CDT by Zeke Pina [email or web address] <ELECTRONICALLY SIGNED> By: Zeke Pina MD, [facility] 08/25/19 1628 1308 1308 Zeke Pina MD, [facility] /EPI
[2019-08-25 16:39] VITALS: BP 142/58
== END 2019-08-25 16:39 | disposition home or self-care (01) ==
LOC: M.ERS 12:29
PROVIDERS: Personal Emergency Response Attendant
DX: I16.0 Hypertensive urgency (principal); I10 Essential (primary) hypertension; H61.23 Impacted cerumen, bilateral; Z86.73 Personal history of transient ischemic attack (TIA), and cerebral infarction without residual deficits

== ENCOUNTER 2019-09-04 11:57 | Emergency (ER) | payer MEDICARE ==
[~2019-09-04] VITALS: Ht 167.6 cm; Wt 89.4 kg
[~2019-09-04 11:57] MED LIST changes: +AMOXICILLIN 50500 M1 PO
[2019-09-04 12:20] LABS: ABSOLUTE EOSINOPHILS 0.2 thou/uL (0.0-0.7); ABSOLUTE MONOCYTES 0.6 thou/uL (0.0-1.2); BASOPHILS 0.5 %; EOSINOPHILS 2.3 %; HEMATOCRIT 38.2 % (37.0-47.0); HEMOGLOBIN 12.9 gm/dL (12.0-15.0); LYMPHOCYTES 25.2 %; MCH 28.3 pg (26.0-34.0); MCHC 33.6 g/dL (28.0-37.0); MCV 84.1 fL (80.0-100.0); MONOCYTES 7.4 %; MPV 8.9 fl. (7.2-11.1); NUCLEATED RBCS 0 /100WBC; PLATELET COUNT* 309 thou/uL (150-400); POLYS 64.6 %; RBC 4.54 mil/uL (4.20-5.00); RDW-CV 16.5 % (10.5-14.5); WBC 7.8 thou/uL (4.0-11.0)
[2019-09-04 12:21] LABS: CALCIUM 8.7 mg/dL (8.5-10.1); CREATININE 1.4 mg/dL (0.6-1.3); POTASSIUM 4.3 mmol/L (3.5-5.1)
[2019-09-04 12:22] LABS: PROTIME 9.9 Seconds (9.20-11.50)
[2019-09-04 12:26] LABS: ALBUMIN 3.4 g/dL (3.4-5.0); TOTAL BILIRUBIN 0.2 mg/dL (<0.1-1.0); TOTAL PROTEIN 7.3 g/dL (6.4-8.2)
[2019-09-04] MEDS ORDERED: EAR DROPS15 ML OTIC (12:39)
[2019-09-04] MEDS ORDERED: CORTISPORIN OTI10 ML OTIC (15:44)
[2019-09-04 15:54] VITALS: BP 177/53
--- NOTE | 2019-09-04 15:55 | EKG ---
[place] [address] ELECTROCARDIOGRAM REPORT Name: AUGUSTO SALOMON Room: [facility]#: [id number] Admission: 09/04/19 Attend Phys: Discharge: 09/04/19 Date of : 32 Date of Service: 09/04/19 1159 Report #: [id number] THIS REPORT FOR: //name// [facility] ED Test Date: 2019-09-04 Test Time: 11:59:00 Pat Name: AUGUSTODANIELA SALOMON Department: Room: Gender: Global President: : 1930 Requested By: Cassi Gandhi Order Number: [id number] MD: Bhaskar Mcfadden Measurements Intervals [place] Rate: 63 P: 72 [place]: 180 QRS: 48 QRSD: 90 T: 99 QT: 423 QTc: 434 Interpretive Statements Sinus rhythm Anterior infarct, old Artifact in lead(s) I,II,III,aVR,aVL,V2,V3 Compared to ECG 08/25/2019 13:08:54 Ectopic atrial bradycardia no longer present Myocardial infarct finding still present Electronically Signed On 09-04-2019 15:53:22 CDT by Bhaskar Mcfadden [email or web address] <ELECTRONICALLY SIGNED> By: Bhaskar Mcfadden MD, [facility] 09/04/19 1553 1159 1159 Bhaskar Mcfadden MD, [facility] /EPI
== END 2019-09-04 15:54 | disposition home or self-care (01) ==
LOC: M.ERS 11:57
PROVIDERS: Personal Emergency Response Attendant
DX: I16.0 Hypertensive urgency (principal); I10 Essential (primary) hypertension; Z86.73 Personal history of transient ischemic attack (TIA), and cerebral infarction without residual deficits